=== PATIENT | female | born 1960 | race Caucasian/White ===

== ENCOUNTER 2020-12-08 19:44 | Observation (INO) ==
[2020-12-09] MEDS ORDERED: Naloxone 0.4 MG/ML INJ IVP PRN (00:33)
[2020-12-09] MEDS ORDERED: Ondansetron 4 MG/2 ML VIAL IVP PRN (00:33)
[2020-12-09] MEDS ORDERED: Acetaminophen 325 MG TABLET PO PRN (00:33)
[2020-12-09] MEDS: Pantoprazole 40 MG in 0.9 % Sodium Chloride Mini Bag 100 ML IVC SCH ×3 (01:59→11:57)
[2020-12-09] MEDS: Cefepime HCl 2,000 MG in Water for inj. (sterile) 20 ML IVP SCH ×2 (05:14→18:20)
[2020-12-09 05:40] LABS: Basophils % 0.4 %; Eosinophils # 0.1 K/mcL (0.0-0.6); Eosinophils % 0.8 %; Hematocrit 37.8 % (35.3-44.9); Hemoglobin 12.8 g/dL (11.5-15.4); Immature Granulocytes % 0.1 % (0-4); Lymphocytes # 2.6 K/mcL (0.6-4.6); Lymphocytes % 28.1 %; Mean Corpuscular HGB Conc 33.9 g/dL (31.6-35.5); Mean Corpuscular Hemoglobin 38.8 pg (28.0-33.3); Mean Corpuscular Volume 114.5 fL (83.0-100.0); Mean Platelet Volume 9.5 fL (9.4-12.4); Monocytes # 0.5 K/mcL (0.0-1.3); Monocytes % 5.7 %; Platelet Count 220 K/mcL (140-400); Red Cell Distribution Width 12.5 % (11.5-14.5); Segmented Neutrophils % 64.9 %; White Blood Count 9.2 K/mcL (4.3-11.1)
[2020-12-09 05:49] LABS: INR 1.4
[2020-12-09 05:59] LABS: Macrocytosis Present (Not Present); Platelet Estimate Normal (Normal); Reactive Lymphocytes Present (Not Present)
[2020-12-09 06:05] LABS: Alanine Aminotransferase 12 Units/L (7-52); Albumin 2.8 g/dL (3.5-5.7); Albumin/Globulin Ratio 0.8 (1.1-2.2); Alkaline Phosphatase 142 Units/L (34-104); Aspartate Amino Transferase 43 Units/L (13-39); BUN/Creatinine Ratio 12 (6-26); Bilirubin,Direct 0.5 mg/dL (0.0-0.2); Bilirubin,Indirect 0.8 mg/dL (0.0-1.0); Bilirubin,Total 1.3 mg/dL (0.3-1.0); Blood Urea Nitrogen 8 mg/dL (6-20); Calcium 8.3 mg/dL (8.6-10.3); Carbon Dioxide 26 mEq/L (23-29); Chloride 105 mEq/L (98-107); Globulin 3.4 g/dL (2.4-3.5); Glucose 96 mg/dL (70-105); Magnesium 1.5 mg/dL (1.6-2.6); Osmolality,Calculated 282 (280-300); Potassium 3.8 mEq/L (3.5-5.1); Sodium 137 mEq/L (136-145); Total Protein 6.2 g/dL (6.4-8.9); eGFR For African Americans > 60 (> 60); eGFR For Non-African Americans > 60 (> 60)
[2020-12-09 06:11] LABS: Thyroid Stimulating Hormone 1.078 mcIU/mL (0.340-5.600)
[2020-12-09 06:43] LABS: Hepatitis B Surface Antigen Nonreactive (Nonreactive)
[2020-12-09 07:12] LABS: Hepatitis B Core IgM Nonreactive (Nonreactive); Hepatitis C Virus Antibody Nonreactive (Nonreactive)
[2020-12-09 07:14] LABS: Hepatitis A Antibody IgM Nonreactive (Nonreactive)
[2020-12-09] MEDS ORDERED: Piperacillin/Tazobactam 3.375 GM in 0.9 % Sodium Chloride Mini Bag 100 ML IVPB SCH (08:00)
[2020-12-09] MEDS: Octreotide 400 MCG in 0.9 % Sodium Chloride 100 ML IVC SCH ×2 (11:57→22:41)
[2020-12-09] MEDS ORDERED: traZODone 50 MG TABLET PO PRN (12:18)
[2020-12-09 14:15] LABS: RBC,Peritoneal Fluid < 2000 RBC/mcL
[2020-12-09 14:42] LABS: Glucose,Peritoneal Fluid 112 mg/dL (No Ref Range); LDH,Peritoneal Fluid 33 Units/L (No Ref Range); Total Protein,Peritoneal Fluid < 2.0 g/dL
[2020-12-09] MEDS: Furosemide 20 MG TABLET PO SCH (14:43)
[2020-12-09] MEDS: Magnesium Oxide 400 MG TABLET PO SCH ×2 (14:43→21:21)
[2020-12-09] MEDS: Albumin 25% 25gram/100mL 25 GM/100 ML IV.SOLN IVPB SCH (15:06)
[2020-12-09 15:27] LABS: Appearance of Peritoneal Fl CLEAR (Clear)
[2020-12-09 15:28] LABS: Basophils,Peritoneal Fluid 0 %; Eosinophils,Peritoneal Fluid 0 %
[2020-12-09] MEDS: Pantoprazole 40 MG VIAL IVP SCH (18:19)
[2020-12-10] MEDS: Albumin 25% 25gram/100mL 25 GM/100 ML IV.SOLN IVPB SCH ×2 (00:31→08:23)
[2020-12-10] MEDS: Pantoprazole 40 MG VIAL IVP SCH (05:39)
[2020-12-10] MEDS: Cefepime HCl 2,000 MG in Water for inj. (sterile) 20 ML IVP SCH (05:39)
[2020-12-10] MEDS: Octreotide 400 MCG in 0.9 % Sodium Chloride 100 ML IVC SCH (05:40)
[2020-12-10 06:05] LABS: Alanine Aminotransferase 11 Units/L (7-52); Albumin 3.1 g/dL (3.5-5.7); Albumin/Globulin Ratio 1.2 (1.1-2.2); Alkaline Phosphatase 98 Units/L (34-104); Aspartate Amino Transferase 55 Units/L (13-39); BUN/Creatinine Ratio 9 (6-26); Bilirubin,Total 1.1 mg/dL (0.3-1.0); Blood Urea Nitrogen 8 mg/dL (6-20); Carbon Dioxide 24 mEq/L (23-29); Chloride 106 mEq/L (98-107); Globulin 2.5 g/dL (2.4-3.5); Glucose 156 mg/dL (70-105); Osmolality,Calculated 286 (280-300); Potassium 3.8 mEq/L (3.5-5.1); Sodium 137 mEq/L (136-145); Total Protein 5.6 g/dL (6.4-8.9); eGFR For African Americans > 60 (> 60); eGFR For Non-African Americans > 60 (> 60)
[2020-12-10 06:55] VITALS: BP 144/82; PULSE 68; TEMP 98.6; O2SAT 94
[2020-12-10] MEDS: Furosemide 20 MG TABLET PO SCH (08:23)
[2020-12-11 03:33] LABS: Fluid Source for Albumin PERITONEAL
== END 2020-12-10 09:30 | disposition home or self-care (01) ==
LOC: 3ANU
PROVIDERS: ADMIT Internal Medicine; ATTEND Internal Medicine